=== PATIENT | male | born 1970 | race Hispanic/Latino ===

== ENCOUNTER 2018-12-04 16:36 | Emergency (ER) | payer BC ==
[2018-12-04 17:07] VITALS: RESP 18; TEMP 97.2
--- NOTE | 2018-12-04 17:57 | C.PDOC ---
Chief Complaint (Nursing): Abnormal Skin Integrity Past Medical History Vital Signs: Last Vital Signs Temp 97.2 F L 12/04/18 17:01 Pulse 94 H 12/04/18 17:01 Resp 18 12/04/18 17:01 BP 130/86 12/04/18 17:01 Pulse Ox 96 12/04/18 17:01 - Medical History PMH: Gastritis - [facility] Procedures REMOVAL SUPERFIC FB EYE (07/30/13) SKIN SUTURE NEC (06/27/00) TETANUS TOXOID ADMINIST (07/15/14) - Social History Hx Tobacco Use: No Hx Alcohol Use: Yes Hx Substance Use: No - Immunization History Hx Tetanus Toxoid Vaccination: No Hx Influenza Vaccination: No Hx Pneumococcal Vaccination: No ED Course And Treatment O2 Sat by Pulse Oximetry: 96 Disposition Counseled Patient/Family Regarding: Diagnosis, Need For Followup - Disposition Disposition: HOME/ ROUTINE Disposition Time: 17:56 Condition: IMPROVED Additional Instructions: Return in 7 days for suture removal. watch for signs of infections. Instructions: Laceration Repair With Stitches (DC) Forms: [employer] (Belizean), General Discharge Instructions - Clinical Impression Clinical Impression: Chin laceration
--- NOTE | 2018-12-04 17:59 | C.PDOC ---
History Of Present Illness 48 year old male presents with two lacerations to the chin after slipping on wood after trying to attach a plow to his truck. Patient reports that last tetanus shot was 3 years ago. Patient denies any numbness,weakness, injury inside the mouth, and syncope. Chief Complaint (Nursing): Abnormal Skin Integrity History Per: Patient History/Exam Limitations: no limitations Current Symptoms Are (Timing): Still Present Location Of Injury: Anterior: Head (chin) Past Medical History Reviewed: Historical Data, Nursing Documentation, Vital Signs Vital Signs: Last Vital Signs Temp 97.2 F L 12/04/18 17:01 Pulse 94 H 12/04/18 17:01 Resp 18 12/04/18 17:01 BP 130/86 12/04/18 17:01 Pulse Ox 96 12/04/18 17:01 - Medical History PMH: Gastritis Surgical History: No Surg Hx - [facility] Procedures REMOVAL SUPERFIC FB EYE (07/30/13) SKIN SUTURE NEC (06/27/00) TETANUS TOXOID ADMINIST (07/15/14) Family History: States: Unknown Family Hx - Social History Hx Tobacco Use: No Hx Alcohol Use: Yes Hx Substance Use: No - Immunization History Hx Tetanus Toxoid Vaccination: No Hx Influenza Vaccination: No Hx Pneumococcal Vaccination: No Review Of Systems Constitutional: Negative for: Fever, Chills, Weakness Eyes: Negative for: Redness ENT: Positive for: Other (Chin lacerations). Negative for: Mouth Swelling Cardiovascular: Negative for: Chest Pain Respiratory: Negative for: Cough, Shortness of Breath Gastrointestinal: Negative for: Nausea, Vomiting, Diarrhea Genitourinary: Negative for: Dysuria, Hematuria Musculoskeletal: Negative for: Back Pain Skin: Negative for: Rash Neurological: Negative for: Weakness, Numbness, Dizziness Physical Exam - Physical Exam Appears: Well, Non-toxic, No Acute Distress Skin: Normal Color, Warm, Dry Head: Laceration (Two lacerations 1.5 cm each), Other (FROM of the jaw) Nose: Normal Throat: Normal Neck: Normal, Normal ROM, Supple Chest: Symmetrical, No Deformity Respiratory: No Accessory Muscle Use Back: Normal Inspection Extremity: Bilateral: Atraumatic, Normal ROM Pulses: Left Radial: Normal, Right Radial: Normal Neurological/Psych: Oriented x3, Normal Speech, Normal Cranial Nerves ED Course And Treatment O2 Sat by Pulse Oximetry: 96 Laceration - Laceration Repair Chin #1 Wound Length (In cm): 1.5 Description Of Wound: Linear Wound Cleansed With: Sterile Saline Wound Examination: Irrigated With Saline, No FB With Wound Exploration Wound Closure: Suture (5) Suture Technique And Material Used: Interrupted, Prolene (4:0) Wound Complexity: Simple Chin #2 Wound Length (In cm): 1.5 Description Of Wound: Linear Wound Cleansed With: Sterile Saline Wound Examination: Irrigated With Saline, No FB With Wound Exploration Wound Closure: Suture (4) Suture Technique And Material Used: Interrupted, Prolene (4:0) Wound Complexity: Simple Medical Decision Making Medical Decision Making: Impression: 48 year old male with laceration Plan: Laceration repaired without difficulty. See procedure note. Patient instructed to follow up in 7-10 days for removal of sutures. Disposition Counseled Patient/Family Regarding: Diagnosis, Need For Followup - Disposition Disposition: HOME/ ROUTINE Disposition Time: 17:56 Condition: IMPROVED Additional Instructions: Return in 7 days for suture removal. watch for signs of infections. 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 (Melanie Isaacs) - Scribe Statement The provider has reviewed the documentation as recorded by the Scribe (Melanie Isaacs) All medical record entries made by the Scribe were at my direction and personally dictated by me. I have reviewed the chart and agree that the record accurately reflects my personal performance of the history, physical exam, medical decision making, and the department course for this patient. I have also personally directed, reviewed, and agree with the discharge instructions and disposition.
[2018-12-04 18:10] VITALS: BP 118/74; PULSE 82
[2018-12-04 18:11] VITALS: O2SAT 96
== END 2018-12-04 18:10 | disposition home or self-care (01) ==
LOC: C.ER 16:36
DX: S01.81XA Laceration without foreign body of other part of head, initial encounter (principal); W01.0XXA Fall on same level from slipping, tripping and stumbling without subsequent striking against object, initial encounter

== ENCOUNTER 2018-12-13 17:18 | Emergency (ER) | payer BC ==
[2018-12-13 17:39] VITALS: BP 112/77; PULSE 94; TEMP 98.8; O2SAT 97
[2018-12-13 18:14] VITALS: RESP 18
--- NOTE | 2018-12-13 18:37 | C.PDOC ---
History Of Present Illness 48 y/o male presents to the ER for suture removal from chin. Patient states that he was evaluated for 2 lacerations in [facility] on 12/04/18 and he has sutures placed. Patient denies having fever,chills, and drainage. Time Seen by Provider: 12/13/18 17:42 Chief Complaint (Nursing): Suture/Staple Removal History Per: Patient History/Exam Limitations: no limitations Past Medical History Reviewed: Historical Data, Nursing Documentation, Vital Signs Vital Signs: Last Vital Signs Temp 98.8 F 12/13/18 17:37 Pulse 94 H 12/13/18 17:37 Resp 18 12/13/18 18:13 BP 112/77 12/13/18 17:37 Pulse Ox 97 12/13/18 17:37 - Medical History PMH: Gastritis Surgical History: No Surg Hx - [facility] Procedures REMOVAL SUPERFIC FB EYE (07/30/13) SKIN SUTURE NEC (06/27/00) TETANUS TOXOID ADMINIST (07/15/14) Family History: States: No Known Family Hx - Social History Hx Tobacco Use: No Hx Alcohol Use: Yes Hx Substance Use: No - Immunization History Hx Tetanus Toxoid Vaccination: No Hx Influenza Vaccination: No Hx Pneumococcal Vaccination: No Review Of Systems Except As Marked, All Systems Reviewed And Found Negative. Constitutional: Negative for: Fever, Chills Physical Exam - Physical Exam Appears: Non-toxic, No Acute Distress Skin: Normal Color, Warm, Dry Head: Normacephalic, Other (9 sutures intact, no drainage) Eye(s): bilateral: Normal Inspection Nose: Normal Oral Mucosa: Moist Neck: Supple Chest: Symmetrical Neurological/Psych: Oriented x3, Normal Speech ED Course And Treatment O2 Sat by Pulse Oximetry: 97 (RA) Pulse Ox Interpretation: Normal Disposition - Disposition Referrals: [facility], [Non-Staff] - Disposition: HOME/ ROUTINE Disposition Time: 18:05 Condition: GOOD Additional Instructions: JEFF DALLAS, thank you for letting us take care of you today. The emergency medical care you received today was directed at your acute symptoms. If you were prescribed any medication, please fill it and take as directed. It may take several days for your symptoms to resolve. Return to the Emergency Department if your symptoms worsen, do not improve, or if you have any other problems. Please contact your doctor or call one of the physicians/clinics you have been referred to that are listed on the Patient Visit Information form that is included in your discharge packet. Bring any paperwork you were given at discharge with you along with any medications you are taking to your follow up visit. Our treatment cannot replace ongoing medical care by a primary care provider outside of the emergency department. Thank you for allowing the [facility] team to be part of your care today. Follow up with your primary care doctor if you have any concerns. Instructions: Stitches Removal Forms: [employer] (Malay) - Clinical Impression Clinical Impression: Removal of suture - Scribe Statement The provider has reviewed the documentation as recorded by the Debiibe Keiko Reina Provider Attestation: All medical record entries made by the Scribe were at my direction and personally dictated by me. I have reviewed the chart and agree that the record accurately reflects my personal performance of the history, physical exam, medical decision making, and the department course for this patient. I have also personally directed, reviewed, and agree with the discharge instructions and disposition.
== END 2018-12-13 18:14 | disposition home or self-care (01) ==
LOC: C.ER 17:18
DX: Z48.02 Encounter for removal of sutures (principal)